=== PATIENT | female | born 1950 | race Caucasian/White ===

== ENCOUNTER 2019-03-29 08:08 | Outpatient (CLI) | payer MEDICARE ==
--- NOTE | 2019-03-29 08:35 | BD ---
DEXA BONE SCAN: HISTORY: Age-related osteoporosis. DEXA bone scan performed using Hologic bone mineral density unit. FINDINGS: Lumbar spine: L1 0.83 T score -1.4 Z score of 0.4 L2 0.78 T score -2.3 Z score of -0.3 L3 0.84 T score -2.2 Z score of -0.1 L4 0.95 T score -1.1 Z score of 1.1 Total 0.85 T score -1.8 Z score of 0.3. Findings compatible with osteopenia. Left hip: Femoral neck 0.80 T score -0.5 Z score 1.3 Composite 0.94 T score 0.0 Z score 1.4.\ Findings compatible with normal bone mineral density. The patient has a major osteoporotic fracture risk of 7.9% and a fracture risk of 0.5%. IMPRESSION: Lumbar degenerative changes. No significant increased risk of osteoporotic fracture seen. Bone min[place] l density is within normal limits. Transcribed Date/Time: 03/29/2019 10:15 AM
--- NOTE | 2019-03-29 13:19 | MRI ---
MRI OF THE LUMBAR SPINE 03/29/19 COMPARISON: None. HISTORY: Scoliosis, feet giving out, back pain and radiculopathy. TECHNIQUE: Multiplanar and multisequence MR imaging of the lumbar spine is provided without contrast. FINDINGS: The sagittal STIR imaging demonstrates no focal area of osseous marrow edema. There is severe levoscoliosis of the lumbar spine. Assuming five lumbar type vertebral bodies, the co nus medullaris terminates in the L1-2 region. T12-L1: There is disc space narrowing, disc desiccation, mild disc bulge, and anterior osteophyte for mation. No significant central canal stenosis. Bilateral facet hypertrophy is present with mild bilat eral neural foraminal stenosis. L1-2: There is disc space narrowing and disc desiccation. There is bilateral facet hypertrophy, right greater than left. There is a small central disc protrusion with no significant central canal stenos is. Mild/moderate bilateral neural foraminal stenosis suspected, right greater than left. L2-3: There is disc space narrowing and disc desiccation with minimal disc bulge. No significant cent ral canal stenosis. Bilateral facet hypertrophy, right greater than left. Mild left neural foraminal stenosis. No significant right neural foraminal stenosis. L3-4: There is disc space narrowing and disc desiccation with mild disc bulge. Bilateral facet hypert rophy. Small left foraminal disc protrusion. Moderate right and mild left neural foraminal stenosis. L4-5: There is disc space narrowing and disc desiccation and disc bulge. There is bilateral facet hyp ertrophy, left greater than right. There is moderate left lateral recess stenosis, moderate left neur al foraminal stenosis, and no significant right neural foraminal stenosis. L5-S1: There is disc space narrowing and disc desiccation with mild disc bulge causing no significant central canal stenosis. Bilateral facet hypertrophy is noted with moderate left neural foraminal leonardo nosis. No significant right neural foraminal stenosis. Partially visualized round T2 hyperintense lesion in upper pole of the left kidney suggests a partial ly imaged 3.3 cm cyst. This is not fully characterized as the superior aspect of this lesion is not i joey. IMPRESSION: Prominent levoscoliosis of the lumbar spine with associated multilevel degenerative change as above. POS: [facility]
== END 2019-03-29 08:09 | disposition home or self-care (01) ==
LOC: BICMAMMO 08:08
PROVIDERS: ATTEND Family Medicine
DX: M85.88 Other specified disorders of bone density and structure, other site (principal); M41.25 Other idiopathic scoliosis, thoracolumbar region; R53.1 Weakness; R26.9 Unspecified abnormalities of gait and mobility; M47.816 Spondylosis without myelopathy or radiculopathy, lumbar region; M47.817 Spondylosis without myelopathy or radiculopathy, lumbosacral region
CPT/HCPCS: 72148; 77080

== ENCOUNTER 2025-05-23 14:12 | Outpatient (CLI) | payer MEDICARE | END 2025-05-23 14:13 | disposition home or self-care (01) | LOC: BICRAD 14:12 | PROVIDERS: ATTEND Internal Medicine Hematology & Oncology | DX: C50.211 Malignant neoplasm of upper-inner quadrant of right female breast (principal); L63.9 Alopecia areata, unspecified; L20.84 Intrinsic (allergic) eczema; Z79.899 Other long term (current) drug therapy | CPT/HCPCS: 71046; 80053; 81001; 85025; 85379; 87040; 87086 ==